=== PATIENT | female | born 1955 | race Caucasian/White ===

== ENCOUNTER 2019-06-17 16:27 | Emergency (ER) | payer SELFPAY ==
[~2019-06-17] VITALS: Ht 167.6 cm; Wt 86.2 kg
[~2019-06-17 16:27] MED LIST: ACET325; ACYC800 PO; ALBU90OI INH; ATEN25; AZIT250 PO; Amoxicillin500 MG PO; CIPR500 PO; DIPATR PO; DOXY100 PO; FAMC500 PO; FLAV100 PO; Flomax0.4 MG PO; HYDACE5 PO; HYDCHL12.5 PO; HYDMOR2 PO; KETO10 PO; LISI10 PO; LISI20 PO; LISI5 PO; LORA2 PO; MULVITMIND PO; NAPR500 PO; NAPR550 PO; ONDA4 PO; OXYACE5T PO; PENVK500 PO; POTCHL20ER PO; PROM25 PO; Percocet 5-3251 EACH PO; RXHYDACE PO; RXHYDMOR2 PO; SULTRIDS PO; TAMS.4ER PO; TOBR.3OPO OP; Tenormin25 MG PO; [UNRECOGNIZED DRUG - REMARK]
[2019-06-17] MEDS ORDERED: Augmentin 875-1 EACH PO (16:47)
== END 2019-06-17 16:56 | disposition home or self-care (01) ==
LOC: ER 16:27
DX: J32.9 Chronic sinusitis, unspecified (principal); J02.9 Acute pharyngitis, unspecified; I10 Essential (primary) hypertension; Z87.442 Personal history of urinary calculi; Z88.5 Allergy status to narcotic agent; Z88.8 Allergy status to other drugs, medicaments and biological substances; Z91.011 Allergy to milk products
CPT/HCPCS: 99282

== ENCOUNTER 2021-05-25 05:01 | Emergency (ER) | payer OTHER ==
[~2021-05-25] VITALS: Ht 165.1 cm; Wt 90.7 kg
[~2021-05-25 05:01] MED LIST changes: +Augmentin 875-1 EACH PO; +HYDR1TAB94 PO; +Prinivil5 MG PO; +Zofran4 MG PO
[2021-05-25 08:04] LABS: BASOPHILS ABSOLUTE AUTO 0.03 K/mm3 (0.00-0.23); BASOPHILS PERCENT AUTO 0 % (0-2); EOSINOPHILS ABSOLUTE AUTO 0.06 K/mm3 (0.00-0.68); EOSINOPHILS PERCENT AUTO 1 % (0-6); Hematocrit 48.4 % (33.0-51.0); Hemoglobin 16.2 g/dL (11.5-16.0); IMMATURE GRAN ABSOLUTE AUTO 0.03 K/mm3 (0.00-0.10); IMMATURE GRAN PERCENT AUTO 0 % (0-1); LYMPHOCYTES ABSOLUTE AUTO 1.48 K/mm3 (0.84-5.20); LYMPHOCYTES PERCENT AUTO 19 % (21-46); MONOCYTES ABSOLUTE AUTO 0.46 K/mm3 (0.16-1.47); MONOCYTES PERCENT AUTO 6 % (4-13); Mean Corpuscular HGB 29.5 pg (26.0-34.0); Mean Corpuscular HGB Conc 33.5 g/dL (31.5-36.5); Mean Corpuscular Volume 88 fL (80-100); Mean Platelet Volume 10.7 fL (9.1-12.4); NEUTROPHILS ABSOLUTE AUTO 5.64 K/mm3 (1.96-9.15); NEUTROPHILS PERCENT AUTO 73 % (41-73); Platelet Count 264 K/mm3 (150-400); RDW Coefficient Variation 13.1 % (11.7-14.2); RDW Standard Deviation 42.5 fL (35.1-46.3)
[2021-05-25 08:22] LABS: Alanine Aminotransfer (ALT/SGP 38 U/L (12-78); Albumin, Blood 3.7 g/dL (3.4-5.0); Albumin/Globulin Ratio 0.8 (0.8-1.8); Alk Phos 61 U/L (50-136); Anion Gap 9 mmol/L (6-16); Aspartate Aminotrans (AST/SGOT 23 U/L (12-37); Bilirubin, Total 0.7 mg/dL (0.1-1.0); Blood Urea Nitrogen 10 mg/dL (8-24); Bun/Creatinine Ratio 12.8 (12.0-20.0); CO2, Blood 28 mmol/L (21-32); Calcium, Blood 9.3 mg/dL (8.5-10.1); Chloride, Blood 104 mmol/L (98-108); Creatinine, Blood 0.78 mg/dL (0.40-1.00); Globulin, Blood 4.7 g/dL (2.2-4.0); Glomerular Filtration Rate >60 (60-); Glucose, Blood 119 mg/dL (70-99); Potassium, Blood 3.5 mmol/L (3.5-5.5); Sodium, Blood 141 mmol/L (136-145); Total Protein, Blood 8.4 g/dL (6.4-8.2)
[2021-05-25] MEDS ORDERED: LISI5 PO (14:34)
[2021-05-25] MEDS ORDERED: TIMDOROPSO LEFTEYE (16:42)
[2021-05-25] MEDS ORDERED: ALPHAGAN P5 ML LEFTEYE (16:42)
[2021-05-25] MEDS ORDERED: ACET250 PO (16:42)
== END 2021-05-25 12:47 | disposition home or self-care (01) ==
LOC: ER 05:01
PROVIDERS: Student in an Organized Health Care Education/Training Program
DX: H40.212 Acute angle-closure glaucoma, left eye (principal); I10 Essential (primary) hypertension; Z88.5 Allergy status to narcotic agent; Z88.8 Allergy status to other drugs, medicaments and biological substances
CPT/HCPCS: 36415; 80053; 85025; 99283; A9270

== ENCOUNTER 2021-05-25 14:21 | Emergency (ER) | payer OTHER ==
[~2021-05-25] VITALS: Ht 167.6 cm; Wt 81.7 kg
[2021-05-25] MEDS ORDERED: LISI5 PO (14:34)
[2021-05-25] MEDS ORDERED: ACET250 PO (16:42)
[2021-05-25] MEDS ORDERED: TIMDOROPSO LEFTEYE (16:42)
[2021-05-25] MEDS ORDERED: ALPHAGAN P5 ML LEFTEYE (16:42)
== END 2021-05-25 17:05 | disposition home or self-care (01) ==
LOC: ER 14:21
DX: H33.22 Serous retinal detachment, left eye (principal); H40.212 Acute angle-closure glaucoma, left eye; I10 Essential (primary) hypertension; Z87.442 Personal history of urinary calculi
CPT/HCPCS: 93005; 93010; 99284-25

== ENCOUNTER → 2021-06-29 | Outpatient (CLI) | payer OTHER ==
[~2021-06-29] MED LIST changes: +ACET250 PO; +ALPHAGAN P5 ML LEFTEYE; +TIMDOROPSO LEFTEYE
[2021-06-30 09:10] LABS: ALBUMIN 4.4 g/dL (3.8-4.8); BILIRUBIN, DIRECT 0.12 mg/dL (0.00-0.40); BILIRUBIN, TOTAL 0.5 mg/dL (0.0-1.2); PROTEIN, TOTAL 7.7 g/dL (6.0-8.5)
== END ==
LOC: LAB SHORT 12:39
PROVIDERS: Student in an Organized Health Care Education/Training Program
DX: Z01.818 Encounter for other preprocedural examination (principal)
CPT/HCPCS: 80076

== ENCOUNTER 2022-03-07 20:37 | Inpatient (IN) | payer OTHER ==
[~2022-03-07] VITALS: Ht 167.6 cm; Wt 85.9 kg
[2022-03-07] MEDS ORDERED: ONDA8 PO (21:19)
[2022-03-07] MEDS ORDERED: METO10 PO (21:20)
[2022-03-07 21:56] LABS: BASOPHILS ABSOLUTE AUTO 0.05 K/mm3 (0.00-0.23); BASOPHILS PERCENT AUTO 1 % (0-2); EOSINOPHILS PERCENT AUTO 0 % (0-6); Hematocrit 41.9 % (33.0-51.0); Hemoglobin 13.7 g/dL (11.5-16.0); IMMATURE GRAN ABSOLUTE AUTO 0.04 K/mm3 (0.00-0.10); IMMATURE GRAN PERCENT AUTO 0 % (0-1); LYMPHOCYTES ABSOLUTE AUTO 0.63 K/mm3 (0.84-5.20); LYMPHOCYTES PERCENT AUTO 6 % (21-46); MONOCYTES ABSOLUTE AUTO 1.04 K/mm3 (0.16-1.47); MONOCYTES PERCENT AUTO 10 % (4-13); Mean Corpuscular HGB Conc 32.7 g/dL (31.5-36.5); Mean Corpuscular Volume 92 fL (80-100); Mean Platelet Volume 11.7 fL (9.1-12.4); NEUTROPHILS PERCENT AUTO 83 % (41-73); Platelet Count 189 K/mm3 (150-400); RDW Coefficient Variation 15.9 % (11.7-14.2); RDW Standard Deviation 53.3 fL (35.1-46.3); Red Blood Cell Count 4.56 M/mm3 (3.80-5.20); White Blood Cell Count 10.56 K/mm3 (4.00-11.30)
[2022-03-07 22:14] LABS: Albumin, Blood 2.5 g/dL (3.4-5.0); Albumin/Globulin Ratio 0.6 (0.8-1.8); Bilirubin, Total 2.7 mg/dL (0.1-1.0); Bun/Creatinine Ratio 16.4 (12.0-20.0); Calcium, Blood 7.9 mg/dL (8.5-10.1); Creatinine, Blood 2.13 mg/dL (0.40-1.00); Globulin, Blood 3.9 g/dL (2.2-4.0); Potassium, Blood 3.9 mmol/L (3.5-5.5); Total Protein, Blood 6.4 g/dL (6.4-8.2)
[2022-03-07 23:19] LABS: Source, Urine Clean Catch
[2022-03-07 23:24] LABS: Bilirubin, Urine Neg (Neg); Blood, Urine 5+ (Neg); Glucose Qualitative, Urine Neg (Neg); Ketones, Urine Neg (Neg); Leukocyte Esterase, Urine 3+ (Neg); Nitrite, Urine Neg (Neg); Protein, Urine 2+ (Neg); Specific Gravity, Urine 1.015 (1.003-1.022); Urobilinogen, Urine NORM (Normal)
[2022-03-07 23:31] LABS: Appearance, Urine Hazy (Clear); Color, Urine Yellow (P-Yellow)
[2022-03-07 23:37] LABS: Red Blood Cells, Urine 50-100 /hpf (0-2)
[2022-03-07 23:38] LABS: Amorphous Light (0-Heavy); Bacteria Rare /hpf; Squamous Epithelial Cells Not Seen /hpf (Few); Uric Acid Crystals Mod /hpf
[2022-03-08] MEDS ORDERED: OXYC5 PO (01:24)
--- NOTE | 2022-03-08 04:53 | NUR ---
SHIFT SUMMARY 60 YR F ADMITTED ON 03/07/22 FOR AMPARO/RENAL FAILURE. FULL CODE. PT CAME TO THIS UNIT AT APPROX 0300 ON 03/08/22 AND WAS ACCOMPANIED BY HER [id number]. SHE HAS BEEN DROWSY SINCE HER ARRIVAL BUT WAS ABLE TO ANSWER QUESTIONS FOR HER ASSESSMENT. SHE STATES THAT SHE JUST DOESN'T FEEL WELL AND IS TIRED. SHE IS ABLE TO AMBULATE TO THE BATHROOM AND PER APPLICATIONS PROGRAMMER ANALYST SHE IS STEADY ON HER FEET. HOWEVER, PT STATES THAT SHE FEELS WEAK SO SBA IS STRONGLY ADVISED.
[2022-03-08 09:59] LABS: BASOPHILS ABSOLUTE AUTO 0.02 K/mm3 (0.00-0.23); BASOPHILS PERCENT AUTO 0 % (0-2); EOSINOPHILS PERCENT AUTO 0 % (0-6); Hematocrit 39.2 % (33.0-51.0); Hemoglobin 12.9 g/dL (11.5-16.0); IMMATURE GRAN ABSOLUTE AUTO 0.03 K/mm3 (0.00-0.10); IMMATURE GRAN PERCENT AUTO 0 % (0-1); LYMPHOCYTES ABSOLUTE AUTO 0.67 K/mm3 (0.84-5.20); LYMPHOCYTES PERCENT AUTO 8 % (21-46); MONOCYTES ABSOLUTE AUTO 0.78 K/mm3 (0.16-1.47); MONOCYTES PERCENT AUTO 9 % (4-13); Mean Corpuscular HGB 30.2 pg (26.0-34.0); Mean Corpuscular HGB Conc 32.9 g/dL (31.5-36.5); Mean Corpuscular Volume 92 fL (80-100); Mean Platelet Volume 11.6 fL (9.1-12.4); NEUTROPHILS ABSOLUTE AUTO 7.16 K/mm3 (1.96-9.15); NEUTROPHILS PERCENT AUTO 83 % (41-73); Platelet Count 164 K/mm3 (150-400); RDW Coefficient Variation 15.9 % (11.7-14.2); RDW Standard Deviation 53.6 fL (35.1-46.3); Red Blood Cell Count 4.27 M/mm3 (3.80-5.20); White Blood Cell Count 8.66 K/mm3 (4.00-11.30)
[2022-03-08 10:19] LABS: Albumin, Blood 2.8 g/dL (3.4-5.0); Albumin/Globulin Ratio 0.8 (0.8-1.8); Bilirubin, Total 2.8 mg/dL (0.1-1.0); Bun/Creatinine Ratio 16.7 (12.0-20.0); Calcium, Blood 7.8 mg/dL (8.5-10.1); Creatinine, Blood 1.68 mg/dL (0.40-1.00); Globulin, Blood 3.6 g/dL (2.2-4.0); Potassium, Blood 3.7 mmol/L (3.5-5.5); Total Protein, Blood 6.4 g/dL (6.4-8.2)
--- NOTE | 2022-03-08 15:05 | NUR ---
Brief supportive visit. Pt vomiting upon arrival. Offered gentel reassuring voice. Called Primary RN Kassie and reported Pt's symtpoms. Kassie will offer medication. Will F/U with Pt when she is feeling a little better.
--- NOTE | 2022-03-08 18:06 | NUR ---
SHIFT SUMMARY PT HAS NEEDED PAIN AND NAUSEA MEDICATION FREQUENTLY THIS SHIFT. MEDICAITON IS EFFECTIVE. IVF INFUSING WITHOUT DIFFICULTY. PT DRINKING CLEARS AND HAS NOT HAD EMESIS AFTER. PT AMBULATING TO THE BATHROOM WITH STAND BY ASSIST. NO ACUTE CHANGES THIS SHIFT. CALL LIGHT IN REACH. WILL REPORT TO ONCOMING RN.
--- NOTE | 2022-03-08 21:30 | NUR ---
ASSISTED UP TO BATHROOM, PAIN 4/10 AT THIS TIME. IV SITE LEAKING. NEW IV PLACED IN LEFT WRIST 20G. REMOVED OLD IV. CALL LIGHT IN REACH.
--- NOTE | 2022-03-08 22:46 | NUR ---
PT CALLED C/O 01/16 PAIN. STATES SHE HAS HAD A ROUGH DAY AND WANTS TO SLEEP. ABD VERY TENDER. MEDICATED WITH 50MCQ OF FENTANYL. IVF INFUSING WELL. CALL LIGHT IN REACH.
--- NOTE | 2022-03-08 23:28 | NUR ---
PT UP TO THE BATHROOM, STARTED TO DRY HEEVE, STATES PAIN IS OK EXCEPT FOR THE DRY HEEVES. BACK TO BED, ZOFRAN GIVEN. MINT TEA GIVEN. CALL LIGHT IN REACH.
[2022-03-09 04:36] LABS: BASOPHILS ABSOLUTE AUTO 0.02 K/mm3 (0.00-0.23); BASOPHILS PERCENT AUTO 0 % (0-2); EOSINOPHILS PERCENT AUTO 0 % (0-6); Hematocrit 40.7 % (33.0-51.0); Hemoglobin 13.3 g/dL (11.5-16.0); IMMATURE GRAN ABSOLUTE AUTO 0.05 K/mm3 (0.00-0.10); IMMATURE GRAN PERCENT AUTO 0 % (0-1); LYMPHOCYTES ABSOLUTE AUTO 0.74 K/mm3 (0.84-5.20); LYMPHOCYTES PERCENT AUTO 7 % (21-46); MONOCYTES ABSOLUTE AUTO 0.77 K/mm3 (0.16-1.47); MONOCYTES PERCENT AUTO 7 % (4-13); Mean Corpuscular HGB Conc 32.7 g/dL (31.5-36.5); Mean Corpuscular Volume 92 fL (80-100); Mean Platelet Volume 11.7 fL (9.1-12.4); NEUTROPHILS ABSOLUTE AUTO 9.58 K/mm3 (1.96-9.15); NEUTROPHILS PERCENT AUTO 86 % (41-73); Platelet Count 190 K/mm3 (150-400); RDW Standard Deviation 53.7 fL (35.1-46.3); Red Blood Cell Count 4.44 M/mm3 (3.80-5.20); White Blood Cell Count 11.16 K/mm3 (4.00-11.30)
[2022-03-09 05:01] LABS: Albumin, Blood 2.7 g/dL (3.4-5.0); Albumin/Globulin Ratio 0.8 (0.8-1.8); Bilirubin, Total 2.3 mg/dL (0.1-1.0); Calcium, Blood 7.7 mg/dL (8.5-10.1); Creatinine, Blood 1.5 mg/dL (0.40-1.00); Globulin, Blood 3.6 g/dL (2.2-4.0); Potassium, Blood 3.6 mmol/L (3.5-5.5); Total Protein, Blood 6.3 g/dL (6.4-8.2)
--- NOTE | 2022-03-09 07:35 | NUR ---
SHIFT SUMMARY: PT CONTINUES TO HAVE NAUSEA WITH DRY HEEVES T/O THE NIGHT, NEEDING ZOFRAN Q4. PAIN HAS BEEN CONSISTENT WITH NEED TO BE MEDICATED AROUND THE CLOCK. GOT FENTANYL X1. VS WNL, SHE DID HAVE ELEVATION IN BP WHEN HER PAIN WAS HIGH ONLY. TOLERATING DIET FOR THE MOST PART. KIDNEY FUNCTIONS SLIGHTLY IMPROVED THIS AM. CA LOW, CALLED INTO DR. HAMMER. IONIZED CA ORDERED TO VERFIY. ILLEOSTOMY WITH LIQUID BROWN STOOL. NO OTHER CHANGES TO NOTE.
--- NOTE | 2022-03-09 15:18 | NUR ---
SHIFT SUMMARY PT RESTING QUIETLY DURING SHIFT REPORT. SPILLING WATER DURING LAB DRAW. REQUESTING CLEAN UP. PT IS WEAK AND DECONDITIONED. UP TO BTHRM USING FWW AND 1P ASSIST NEEDED. REQUESTED SHOWER AFTER BREAKFAST, SOME ASSIST FROM [facility]. VISITORS TO THRU OUT THE DAY. MEDICATED PER EMAR FOR C/O PAIN AND NAUSEA. ILEOSTOMY TO RLQ; PT MOSTLY DOING SELF CARE. RESTING QUIETLY AT THIS TIME. CALLS FOR NEEDS. WILL MONITOR.
[2022-03-10 05:20] LABS: Bun/Creatinine Ratio 15.4 (12.0-20.0); Calcium, Blood 7.6 mg/dL (8.5-10.1); Creatinine, Blood 1.56 mg/dL (0.40-1.00); Potassium, Blood 3.8 mmol/L (3.5-5.5)
--- NOTE | 2022-03-10 06:40 | NUR ---
NOC SHIFT SUMMARY PT ADMITTED WITH AMPARO. LIVER MASS FOUND ON IMAGING MALIGNANCY. HX OF ILLEOSTOMY; RLQ. PT ON CLEAR LIQUID DIET, HOWEVER, HAVING DIFFICULT TIME WITH NAUSEA. IVF INFUSING AT 75 mL/HR. IV ABX. PO ANALGESICS EFFECTIVE, BUT AGAIN, PT HAS DIFFICULTY KEEPING NAUSEA AT BAY. ANTIEMETICS Q6H. POOR PROGRESS REGARDING DIET ADVANCEMENT. NO OTHER ISSUES OVERNIGHT.
--- NOTE | 2022-03-10 14:16 | NUR ---
Met with pt and her [id number] at bedside. Pt appears fatigued, pale, anxious lying in bed. Both express concerns about how pt will manage self care at home. She lives with her brother who does not provide care or assist. Pt states she does not have the resources to hire help. Care Management is not available until Friday and pt is being d/c'd today. Discussed OP Palliative Care, HH, Hospice programs. Pt lives remotely in [place] and OP Palliative Care program does not serve that area. Pt would benefit from HH RN, CRA OFFICER, DIRECTOR OF SPEECH PATHOLOGY, PT/OT and dietitian going forward for education on disease process, s/s management, safety and mobility in the home, feeding plan for maximizing hydration and nutrition in light of discomfort with intake, N/V at times. Pt has testing scheduled per Dr Velasquez and then will schedule an appointment with him to further discuss plan of care, tx options. We discussed importance of asking questions re: quality of live, prolongation of life, expectations with tx side effects. Pt/SVETA identify need for hospital bed in the home. Pt's bedroom is upstairs and she is unable to navigate stairs at this time. Instructions given on calling Dr Velasquez and PCP's office tomorrow to update on admission and status, contact [employer] with # given to find out if pt is eligible for medicaid and funds for caregiving assistance in the home. Discussed advanced care planning at length and gave pt brochures for review to generate questions for her providers. Also gave pt [id number] brochure for HH/H. She had requested [facility] out of the two agencies available locally. Pt uses [facility]'s Medical supply and will request hosp bed RX from her PCP to be faxed to [facility]' tomorrow. Sister in law does not live near pt and verbalized concern that she will not be able to get pt in car and to medical appointments any longer unless pt improves and is stronger, more independent with transfers and mobility. She currently meets medicare homebound criteria for home health as it takes an extreme and taxing effort for her to leave her home due to weakness and frequent recurrent N/V, abd pain and dehydration. Pt's demographic and clinical information to be faxed to [facility] today with her permission and request.
[2022-03-10] MEDS ORDERED: ALLO100 PO (14:29)
[2022-03-10] MEDS ORDERED: AMLO5 PO (14:30)
[2022-03-10] MEDS ORDERED: PROC5 PO (14:31)
--- NOTE | 2022-03-10 15:53 | NUR ---
PT RESTING QUIETLY SITTING UP IN BED MOST OF THE DAY. UP TO BTHRM WITH 1P ASSIST USING FWW NEEDED. CALLS FOR NAUSEA AND PAIN MEDICATIONS NEEDED. TOLERATING CL DIET. PT NEEDING TO F/U WITH DR HAIRSTON TO PLAN TX NEEDED. PT STATED THAT SHE WANTED TO START CANCER TX, BUT DOES NOT SEEM TO UNDERSTAND THE NEED TO MAKE DECISIONS AND FOLLOW THRU WITH THEM. DR LEWIS IN TO SEE PT AND DISCUSS PLAN OF CARE. PT TO D/C TO HOME WITH H/H AND F/U WITH PCP AND DR HAIRSTON. PALLIATIVE CARE NOTIFIED TO TALK TO PT AND FAMILY WHILE THEY WERE STILL HERE. PAIGE MUNSON, OFFERED RESOURCES AND FAXED NEEDED INFO TO HOME HEALTH. IV SITE D/C'D WNL'S. D/C MEDS FAXED TO [facility] PER PT REQUEST. PT ASSISTED IN GETTING DRESSED BY DRUM PLATER AND TAKEN OUT TO FAMILY CAR VIA W/C.
== END 2022-03-10 15:12 | disposition home or self-care (01) | DRG 683 ==
LOC: ER 20:37 → MEDS 20:39 → ER 23:40 → MEDS 23:40
PROVIDERS: Emergency Medicine; Internal Medicine; ADMIT Internal Medicine
DX: N17.9 Acute kidney failure, unspecified (principal); C64.2 Malignant neoplasm of left kidney, except renal pelvis; C78.7 Secondary malignant neoplasm of liver and intrahepatic bile duct; C78.00 Secondary malignant neoplasm of unspecified lung; E86.0 Dehydration; E88.3 Tumor lysis syndrome; E86.9 Volume depletion, unspecified; Z51.5 Encounter for palliative care; I10 Essential (primary) hypertension; K27.9 Peptic ulcer, site unspecified, unspecified as acute or chronic, without hemorrhage or perforation; C69.92 Malignant neoplasm of unspecified site of left eye; Z93.2 Ileostomy status; Z98.890 Other specified postprocedural states; Z79.899 Other long term (current) drug therapy; Z88.5 Allergy status to narcotic agent; Z87.442 Personal history of urinary calculi; Z88.8 Allergy status to other drugs, medicaments and biological substances; Z91.011 Allergy to milk products
CPT/HCPCS: 36415; 74022; 76770; 80048; 80053; 81001; 82330; 83690; 83880; 84100; 84550; 85025; 87086; 96374; 96375; 99285-25; A9270; G0378; J0360; J0696; J0780; J1650; J2405; J3010; J7030; P9047

== ENCOUNTER 2022-03-23 14:18 | Emergency (ER) | payer OTHER ==
[~2022-03-23] VITALS: Ht 167.6 cm; Wt 77.1 kg
[~2022-03-23 14:18] MED LIST changes: +ALLO100 PO; +AMLO5 PO; +METO10 PO; +ONDA8 PO; +OXYC5 PO; +PROC5 PO
[2022-03-23 15:13] LABS: BASOPHILS ABSOLUTE AUTO 0.04 K/mm3 (0.00-0.23); BASOPHILS PERCENT AUTO 0 % (0-2); EOSINOPHILS ABSOLUTE AUTO 0.01 K/mm3 (0.00-0.68); EOSINOPHILS PERCENT AUTO 0 % (0-6); Hematocrit 39.4 % (33.0-51.0); Hemoglobin 13.3 g/dL (11.5-16.0); IMMATURE GRAN ABSOLUTE AUTO 0.13 K/mm3 (0.00-0.10); IMMATURE GRAN PERCENT AUTO 1 % (0-1); LYMPHOCYTES ABSOLUTE AUTO 0.53 K/mm3 (0.84-5.20); LYMPHOCYTES PERCENT AUTO 4 % (21-46); MONOCYTES ABSOLUTE AUTO 1.01 K/mm3 (0.16-1.47); MONOCYTES PERCENT AUTO 7 % (4-13); Mean Corpuscular HGB 30.9 pg (26.0-34.0); Mean Corpuscular HGB Conc 33.8 g/dL (31.5-36.5); Mean Corpuscular Volume 92 fL (80-100); Mean Platelet Volume 11.6 fL (9.1-12.4); NEUTROPHILS ABSOLUTE AUTO 11.99 K/mm3 (1.96-9.15); NEUTROPHILS PERCENT AUTO 87 % (41-73); Platelet Count 173 K/mm3 (150-400); RDW Coefficient Variation 19.9 % (11.7-14.2); RDW Standard Deviation 65.1 fL (35.1-46.3); White Blood Cell Count 13.71 K/mm3 (4.00-11.30)
[2022-03-23 15:25] LABS: Albumin, Blood 2.1 g/dL (3.4-5.0); Albumin/Globulin Ratio 0.6 (0.8-1.8); Bilirubin, Total 8.5 mg/dL (0.1-1.0); Bun/Creatinine Ratio 18.9 (12.0-20.0); Calcium, Blood 7.8 mg/dL (8.5-10.1); Creatinine, Blood 0.9 mg/dL (0.40-1.00); Globulin, Blood 3.6 g/dL (2.2-4.0); Potassium, Blood 4.2 mmol/L (3.5-5.5); Total Protein, Blood 5.7 g/dL (6.4-8.2)
[2022-03-23 15:58] LABS: Source, Urine Clean Catch
[2022-03-23 16:09] LABS: Appearance, Urine Hazy (Clear); Blood, Urine 5+ (Neg); Color, Urine Amber (P-Yellow); Glucose Qualitative, Urine Neg (Neg); Ketones, Urine 1+ (Neg); Leukocyte Esterase, Urine 3+ (Neg); Nitrite, Urine Pos (Neg); Protein, Urine 2+ (Neg); Urobilinogen, Urine 2+ (Normal)
[2022-03-23 16:16] LABS: Bilirubin, Urine 3+ (Neg)
[2022-03-23 16:17] LABS: Bacteria Many /hpf; Red Blood Cells, Urine 50-100 /hpf (0-2); Renal Epithelial Rare /hpf (0-Rare); Squamous Epithelial Cells Many /hpf (Few); Transitional Epithelial Cells Few /hpf (0-Rare); White Blood Cells, Urine 25-50 /hpf (0-5)
[2022-03-23] MEDS ORDERED: CEFD300 PO (18:15)
== END 2022-03-23 19:26 | disposition home or self-care (01) ==
LOC: ER 14:18
PROVIDERS: Emergency Medicine
DX: R11.2 Nausea with vomiting, unspecified (principal); C64.9 Malignant neoplasm of unspecified kidney, except renal pelvis; C78.7 Secondary malignant neoplasm of liver and intrahepatic bile duct; C69.92 Malignant neoplasm of unspecified site of left eye; R17 Unspecified jaundice; R82.81 Pyuria; R19.7 Diarrhea, unspecified; R10.9 Unspecified abdominal pain; R06.02 Shortness of breath; I10 Essential (primary) hypertension; Z88.5 Allergy status to narcotic agent; Z88.8 Allergy status to other drugs, medicaments and biological substances; Z91.011 Allergy to milk products
CPT/HCPCS: 71260; 74177; 80053; 81001; 83690; 83880; 84484; 85025; 87086; 93005; 93010; 96361; 96365-59; 99284-25; A9270; J0696; J7030; Q9967

== ENCOUNTER 2022-03-26 16:50 | Observation (INO) | payer OTHER ==
[~2022-03-26] VITALS: Ht 160 cm; Wt 88.5 kg
[~2022-03-26 16:50] MED LIST changes: +CEFD300 PO
[2022-03-26 17:43] LABS: BASOPHILS ABSOLUTE AUTO 0.04 K/mm3 (0.00-0.23); BASOPHILS PERCENT AUTO 0 % (0-2); EOSINOPHILS ABSOLUTE AUTO 0.09 K/mm3 (0.00-0.68); EOSINOPHILS PERCENT AUTO 0 % (0-6); Hematocrit 43.4 % (33.0-51.0); Hemoglobin 14.5 g/dL (11.5-16.0); IMMATURE GRAN ABSOLUTE AUTO 0.28 K/mm3 (0.00-0.10); IMMATURE GRAN PERCENT AUTO 1 % (0-1); LYMPHOCYTES ABSOLUTE AUTO 0.55 K/mm3 (0.84-5.20); LYMPHOCYTES PERCENT AUTO 3 % (21-46); MONOCYTES ABSOLUTE AUTO 1.55 K/mm3 (0.16-1.47); MONOCYTES PERCENT AUTO 8 % (4-13); Mean Corpuscular HGB 31.5 pg (26.0-34.0); Mean Corpuscular HGB Conc 33.4 g/dL (31.5-36.5); Mean Corpuscular Volume 94 fL (80-100); Mean Platelet Volume 11.5 fL (9.1-12.4); NEUTROPHILS ABSOLUTE AUTO 17.91 K/mm3 (1.96-9.15); NEUTROPHILS PERCENT AUTO 88 % (41-73); Platelet Count 200 K/mm3 (150-400); RDW Coefficient Variation 21.1 % (11.7-14.2); White Blood Cell Count 20.42 K/mm3 (4.00-11.30)
[2022-03-26 18:00] LABS: Albumin/Globulin Ratio 0.6 (0.8-1.8); Bilirubin, Total 10.8 mg/dL (0.1-1.0); Bun/Creatinine Ratio 29.5 (12.0-20.0); Calcium, Blood 8.4 mg/dL (8.5-10.1); Creatinine, Blood 1.05 mg/dL (0.40-1.00); Globulin, Blood 3.6 g/dL (2.2-4.0); Potassium, Blood 4.6 mmol/L (3.5-5.5); Total Protein, Blood 5.6 g/dL (6.4-8.2)
--- NOTE | 2022-03-26 19:17 | NUR ---
long conversation with patient. She is very fatigued and symptomatic. She has been having increased back and shoulder pain some of it preassure. and radiating. Informed physician. pt very fearfull and fatigued. She is ashen has not been able to stand or walk to bathroom. She denies falls.. not sure i believe her! She has increasing ringing in her ears and balance disturbance. She ahs been able to eat. she expressed her fears and expressed some lack of understanding of whats ahead. She is so fatigued and ill struggling to chelly in information. Spoke at length with her daughter about getting treatment and other alternatives. Plan at this time is to eith admit or hold her tonight will contact Dr morrissey tomorrow to update on changes and diagnostics. Will get paln options so family can plan daughter needs to go back to [place]. Will follow up with plan of care and to monitor symtoms and reevalute medications.
--- NOTE | 2022-03-27 03:57 | NUR ---
SHIFT SUMMARY PATIENT IS ALERT AND ORIENTED. PATIENT IS A RECENT ADMIT FROM ED. PATIENT HAS NOT HAD ANY ACUTE EVENTS THIS SHIFT. VITAL SIGNS REVIEWED. PATIENT HAS BEEN MEDICATED FOR PAIN Q2 PER EMAR. PATIENT HAS BEEN HAVING NAUSEA AND VOMITTING THIS SHIFT. PATIENT HAS NOT COMPLAINED OF SOB THIS SHIFT. PATIENTS DAUGHTER HAS BEEN VISITING FROM OUT OF TOWN ALL NIGHT. BED IN LOCKED AND LOWEST POSITION. CALL LIGHT IN PLACE. WILL MONITOR UNTIL SHIFT CHANGE.
--- NOTE | 2022-03-27 19:35 | NUR ---
SHIFT SUMMARY 66-YEAR-OLD FEMALE IN FOR N/V WITH HX CA. PTN BEDREST. PERIPHERAL IV TO L WRIST. PTN CHANGED TO COMFORT CARE THIS SHIFT AND MEDICATED PER EMAR. ILEOSTOMY TO LLQ, NO NEED TO EMPTY THIS SHIFT, GAS WAS EXPELLED AND PTN ABLE TO RECLAMP. FAMILY MEMBERS WITH PTN MOST OF DAY. COMFORT CARE NURSE MADE VISIT THIS SHIFT. PTN REMAINED COMFORTABLE. PTN DID NOT EAT MUCH OF HER MEALS. ENJOYED PEPSI WITH ICE. PLAN TO TRANSITION TO HOSPICE CARE AT HOME. CONTINUE TO MONITOR.
--- NOTE | 2022-03-28 01:51 | NUR ---
FAN ON THE BEDSIDE TABLE TO HELP COOL THE PATIENT OFF. PTS FACE IS FLUSHED AND CLAMMY.
--- NOTE | 2022-03-28 06:24 | NUR ---
BLADDER SCANNED PT, THE PT HAS NOT HAD ANY URINARY OUTPUT T/O THE SHIFT. FOUND 107 ML. CONSIDER PLACING SARABIA FOR URINARY RETENTION/PT COMFORT. WILL PASS ON FINDING TO ONCOMING RN.
--- NOTE | 2022-03-28 06:27 | NUR ---
SHIFT SUMMARY; PT SLEPT MOST OF THE NIGHT. NO ACUTE MEDICAL CHANGES. PT REPOSITIONED Q2HRS. ROXANOL GIVEN AT BEGINNING OF SHIFT AND AGAIN AROUND 0530. PTS DAUGHTER AT BEDSIDE THE ENTIRE NIGHT. BLADDER SCANNED THE PT THE PT HAD NO URINARY OUTPUT THROUGHOUT THE NIGHT, SAW ONLY 107ML. WILL PASS ON FINDINGS TO ONCOMING RN. PT CURRENTLY RESTING IN BED, BED IN THE LOWEST POSITION AND CALL LIGHT IN HAND. COMFORT CARE PT.
--- NOTE | 2022-03-28 11:48 | NUR ---
Comfort Care Visit Pt resting in bed and is non verbal. Non verbal indicators suggest potential anxiety and pain. Pt's sister Sharon at bedside. Offered emotional support and answered questions. Spoke with Primary RN Jordi and discussed case. Jordi will offer comfort medication. Palliative Care will remain available.
--- NOTE | 2022-03-28 16:14 | NUR ---
SHIFT SUMMARY PATIENT AT 1600. DR HUITRON NOTIFIED. FAMILY IN ROOM. ROMEO IN ROOM TO TALK TO PATIENTS FAMILY.
--- NOTE | 2022-03-28 16:15 | NUR ---
Spoke with Primary RN and blacksmith helper. Pt just and family at bedside. Offered emotional support as family is tearful. Continued supportive visit and called front end assistant per niece request. Family appears to be grieving appropriately. Palliative Care will remain available.
--- NOTE | 2022-03-28 16:52 | NUR ---
Spiritual Care - EOL Pt. passed at 16:00. Pts. daughter is at bedside and requested a supervisor core drilling. Prayed over the Pt. and afterward sat with the family and facilitated a life review. Pts. daughter went out of her way to verbalize how wonderful the hospital staff has been as they cared for her mother. Pts. Brother is the primary deciion maker, and confirmed that [facility] in [place] is the home of choice. The family will let the staff know when they leave the hospital.
--- NOTE | 2022-03-28 17:07 | NUR ---
Spiritual Care follow-up. The family left the hospital at 17:00. No other family are expected to visit the Pt. at the hospital.
== END 2022-03-28 16:00 ==
LOC: ER 16:50 → MEDS 16:51 → ER 21:31 → MEDS 21:40
PROVIDERS: Emergency Medicine; ADMIT Internal Medicine
DX: R11.2 Nausea with vomiting, unspecified (principal); C64.9 Malignant neoplasm of unspecified kidney, except renal pelvis; C79.9 Secondary malignant neoplasm of unspecified site; E86.0 Dehydration; R65.10 Systemic inflammatory response syndrome (SIRS) of non-infectious origin without acute organ dysfunction; C69.90 Malignant neoplasm of unspecified site of unspecified eye; K76.6 Portal hypertension; Z66 Do not resuscitate; Z51.5 Encounter for palliative care; R09.2 Respiratory arrest
CPT/HCPCS: 71045; 76705; 80053; 83690; 85025; 96375; 96376; A9270; G0378; J0780; J1885; J2060; J2270; J2405; J2765; J3010; J7030; J7120